=== PATIENT | female | born 1985 | race Caucasian/White ===

== ENCOUNTER 2017-01-15 21:03 | Emergency (ER) | payer SELFPAY ==
[~2017-01-15] VITALS: Ht 160 cm; Wt 69.6 kg
[~2017-01-15 21:03] MED LIST: CETI10CA PO; FLUT9.9S NASAL; PREN-39 PO
[2017-01-15 21:26] VITALS: Ht 160 cm; Wt 69.6 kg
== END 2017-01-16 00:51 | disposition left against medical advice (07) ==
LOC: E/R 21:03
DX: Z53.21 Procedure and treatment not carried out due to patient leaving prior to being seen by health care provider (principal)

== ENCOUNTER 2017-04-22 11:19 | Emergency (ER) | END 2017-04-22 13:34 | disposition home or self-care (01) ==

== ENCOUNTER 2017-09-08 16:56 | Emergency (ER) | END 2017-09-08 19:25 | disposition left against medical advice (07) ==

== ENCOUNTER 2017-11-08 10:49 | Emergency (ER) | END 2017-11-08 13:26 | disposition home or self-care (01) ==

== ENCOUNTER 2018-04-21 23:51 | Emergency (ER) | payer SELFPAY ==
[~2018-04-21] VITALS: Wt 86.0 kg
[~2018-04-21 23:51] MED LIST changes: +BENZ-6 PO; +HYDR-3029 PO; +IBUP-1542 PO; +LORA1TAB PO
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
[2018-04-22] MEDS ORDERED: HYDR-4011 PO (04:53)
[2018-04-22] MEDS ORDERED: IBUP-1561 PO (04:53)
[2018-04-22] MEDS ORDERED: POLY10DR19 LEFT EYE (04:53)
[2018-04-22 05:10] VITALS: BP 138/93; PULSE 82; RESP 16
== END 2018-04-22 05:11 | disposition home or self-care (01) ==
LOC: FTE 23:51
DX: S00.12XA Contusion of left eyelid and periocular area, initial encounter (principal); Y09 Assault by unspecified means
CPT/HCPCS: 99283